=== PATIENT | female | born 1965 | race Caucasian/White ===

== ENCOUNTER 2016-06-15 15:41 | Inpatient (IN) | payer OTHER ==
[~2016-06-15] VITALS: Ht 168.9 cm; Wt 99.6 kg
[~2016-06-15 15:41] MED LIST: ATARAX,VISTARIL50 MG PO; LOSARTAN POTAS100 MG; LUNESTA3 MG PO; MOTRIN800 MG PO; OXYCODONE HCL30 MG
[2016-06-15 19:25] LABS: HEMATOCRIT 36.6 % (36.0-46.0); MCH 29.2 PG (29.0-34.0); MCHC 34.7 G/DL (30.0-36.0); MCV 84.1 FL (83-99); PLATELET COUNT 671 K/uL (156-360); RBC DIS.WIDTH-CV 12.6 % (11.8-14.6); RBC DIS.WIDTH-SD 37.9 % (39-53); RED BLOOD COUNT 4.35 M/uL (3.80-5.20); WHITE BLOOD COUNT 13.3 K/uL (4.1-10.2)
[2016-06-15 20:05] LABS: CHLORIDE 94 mEq/L (99-109); POTASSIUM 2.9 mEq/L (3.7-5.4); SODIUM 135 mEq/L (136-147)
[2016-06-15 20:08] LABS: GLUCOSE 125 mg/dL (70-99)
[2016-06-15 20:09] LABS: ANION GAP 17 MEQ/L (2-14)
[2016-06-15 20:10] LABS: TOTAL BILIRUBIN 0.5 mg/dL (0.0-1.0)
[2016-06-15 20:11] LABS: ALKALINE PHOSPHATASE 119 IU/L (3-129); GFR ESTIMATE (CALCULATED) 16 mL/min/
[2016-06-15 20:12] LABS: UREA NITROGEN (BUN) 29 mg/dL (9-23)
[2016-06-15 20:15] LABS: LIPASE 39 U/L (1.0-51.0)
[2016-06-15 20:31] LABS: HEMATOLOGY COMMENT 1 SMEAR COMPATIBLE; USER ID WCD
[2016-06-15 20:32] LABS: EOSINOPHIL (%) 0.2 % (0-5); IMMATURE GRANULOCYTE (%) 2.4 % (0.0-0.7); IMMATURE GRANULOCYTE COUNT 3.2 K/uL; LYMPHOCYTE COUNT 2.3 K/uL (1.0-2.8); MONOCYTE (%) 5.3 % (3-12); MONOCYTE COUNT 0.7 K/uL (0-0.8); NEUTROPHIL (%) 74.5 % (45-76); NEUTROPHIL COUNT 9.9 K/uL (1.8-6.4)
[2016-06-15 22:26] LABS: ADD MIUA? YES; BILIRUBIN NEGATIVE; BLOOD SMALL; COLOR AMBER ((YELLOW)); GLUCOSE (STRIP) NEGATIVE; KETONES 5; LEUKOCYTES MODERATE; NITRITE NEGATIVE; PROTEIN (STRIP) 100; SPECIFIC GRAVITY 1.019 (1.000-1.030); UROBILINOGEN 0.2 MG/DL (0.2-1.0)
[2016-06-15 22:47] LABS: EPITHELIAL CELLS RARE /HPF; MUCUS NONE SEEN /LPF; RED BLOOD CELLS 0-5 /HPF (0-5); WHITE BLOOD CELLS 30-40 /HPF (0-5)
[2016-06-15 22:48] LABS: BACTERIA 3+ /HPF; CASTS NONE SEEN /LPF; CRYSTALS NONE SEEN; UCUL ADDED? YES
[2016-06-15] MEDS ORDERED: METOPROLOL SUC100 MG PO (23:17)
[2016-06-15] MEDS ORDERED: BRINTELLIX10 MG PO (23:18)
[2016-06-15] MEDS ORDERED: XANAX1 MG PO (23:18)
[2016-06-16] VITALS (8 sets, daily range): BP systolic 104–141; BP diastolic 57–78
[2016-06-16 09:16] LABS: HEMATOCRIT 30.1 % (36.0-46.0); MCH 29.5 PG (29.0-34.0); MCHC 33.9 G/DL (30.0-36.0); MEAN PLAT.VOLUME 9.9 uM^3 (9.5-12.4); PLATELET COUNT 527 K/uL (156-360); RBC DIS.WIDTH-CV 13.4 % (11.8-14.6); RBC DIS.WIDTH-SD 42.6 % (39-53)
[2016-06-16 09:17] LABS: RED BLOOD COUNT 3.46 M/uL (3.80-5.20); WHITE BLOOD COUNT 8.7 K/uL (4.1-10.2)
[2016-06-16 09:18] LABS: ANION GAP 13 MEQ/L (2-14); CHLORIDE 99 MEQ/L (99-109); SAMPLE HEMOLYSIS CHECK 0; SAMPLE ICTERIC CHECK 0; SAMPLE LIPEMIA CHECK 0; SODIUM 137 MEQ/L (136-147)
[2016-06-16 09:22] LABS: POTASSIUM 3.5 MEQ/L (3.7-5.4)
[2016-06-16 09:24] LABS: GFR ESTIMATE (CALCULATED) 15 mL/min/; UREA NITROGEN (BUN) 30 mg/dL (9-23)
[2016-06-16 09:25] LABS: GLUCOSE 91 mg/dL (70-99)
[2016-06-17 04:20] VITALS: BP 122/80
[2016-06-17 06:26] LABS: EOSINOPHIL (%) 1.2 % (0-5); EOSINOPHIL COUNT 0.1 K/uL (0-0.3); HEMATOCRIT 30.9 % (36.0-46.0); IMMATURE GRANULOCYTE (%) 1.7 % (0.0-0.7); IMMATURE GRANULOCYTE COUNT 0.1 K/uL; LYMPHOCYTE COUNT 2.2 K/uL (1.0-2.8); MCH 29.1 PG (29.0-34.0); MCV 88.3 FL (83-99); MONOCYTE (%) 9.6 % (3-12); MONOCYTE COUNT 0.6 K/uL (0-0.8); NEUTROPHIL (%) 50.9 % (45-76); NEUTROPHIL COUNT 3.1 K/uL (1.8-6.4); PLATELET COUNT 466 K/uL (156-360); RBC DIS.WIDTH-CV 13.6 % (11.8-14.6); RBC DIS.WIDTH-SD 43.9 % (39-53)
[2016-06-17 06:51] LABS: ANION GAP 10 MEQ/L (2-14); CHLORIDE 105 MEQ/L (99-109); GFR ESTIMATE (CALCULATED) 24 mL/min/; GLUCOSE 92 mg/dL (70-99); MAGNESIUM 1.4 mg/dl (1.3-2.7); POTASSIUM 3.1 MEQ/L (3.7-5.4); SAMPLE HEMOLYSIS CHECK 0; SAMPLE ICTERIC CHECK 0; SAMPLE LIPEMIA CHECK 0; SODIUM 139 MEQ/L (136-147); UREA NITROGEN (BUN) 26 mg/dL (9-23); URIC ACID 8.1 mg/dL (3.1-9.2)
[2016-06-17 08:27] VITALS: BP 112/68
[2016-06-17 12:24] VITALS: BP 112/56
[2016-06-17 16:29] VITALS: BP 162/92
[2016-06-17 20:02] VITALS: BP 127/82
[2016-06-18] VITALS (7 sets, daily range): BP systolic 110–182; BP diastolic 58–90
[2016-06-18 09:10] LABS: ANION GAP 8 MEQ/L (2-14); CHLORIDE 107 MEQ/L (99-109); GFR ESTIMATE (CALCULATED) 28 mL/min/; GLUCOSE 93 mg/dL (70-99); SAMPLE HEMOLYSIS CHECK 0; SAMPLE ICTERIC CHECK 0; SAMPLE LIPEMIA CHECK 0; SODIUM 142 MEQ/L (136-147); UREA NITROGEN (BUN) 21 mg/dL (9-23)
[2016-06-18 09:13] LABS: MAGNESIUM 1.7 mg/dl (1.3-2.7); POTASSIUM 4.4 MEQ/L (3.7-5.4)
[2016-06-19 04:38] VITALS: BP 115/57
[2016-06-19 06:20] LABS: ANION GAP 8 MEQ/L (2-14); CHLORIDE 108 MEQ/L (99-109); GFR ESTIMATE (CALCULATED) 30 mL/min/; GLUCOSE 99 mg/dL (70-99); SAMPLE HEMOLYSIS CHECK 1; SAMPLE ICTERIC CHECK 0; SAMPLE LIPEMIA CHECK 0; SODIUM 142 MEQ/L (136-147); UREA NITROGEN (BUN) 17 mg/dL (9-23)
[2016-06-19 06:43] LABS: MAGNESIUM 1.5 mg/dl (1.3-2.7)
[2016-06-19 07:41] LABS: POTASSIUM 4.6 MEQ/L (3.7-5.4)
[2016-06-19 08:30] VITALS: BP 147/65
[2016-06-19 11:30] VITALS: BP 114/73
[2016-06-19 15:05] VITALS: BP 178/90
[2016-06-19 21:04] VITALS: BP 178/98
[2016-06-20 00:13] VITALS: BP 120/71
[2016-06-20 06:31] LABS: ANION GAP 10 MEQ/L (2-14); CHLORIDE 106 MEQ/L (99-109); GFR ESTIMATE (CALCULATED) 34 mL/min/; GLUCOSE 94 mg/dL (70-99); POTASSIUM 4.3 MEQ/L (3.7-5.4); SAMPLE HEMOLYSIS CHECK 0; SAMPLE ICTERIC CHECK 0; SAMPLE LIPEMIA CHECK 0; SODIUM 138 MEQ/L (136-147); UREA NITROGEN (BUN) 15 mg/dL (9-23)
[2016-06-20 08:30] VITALS: BP 110/61
[2016-06-20 14:08] LABS: MAGNESIUM 1.2 mg/dl (1.3-2.7)
[2016-06-20 16:30] VITALS: BP 134/78
[2016-06-20 23:51] VITALS: BP 113/72
[2016-06-21 05:08] LABS: POTASSIUM 4.7 mEq/L (3.7-5.4)
[2016-06-21 05:10] LABS: GLUCOSE 88 mg/dL (70-99)
[2016-06-21 05:12] LABS: ANION GAP 7 MEQ/L (2-14)
[2016-06-21 05:13] LABS: CHLORIDE 109 mEq/L (99-109); SODIUM 145 mEq/L (136-147)
[2016-06-21 05:14] LABS: GFR ESTIMATE (CALCULATED) 34 mL/min/
[2016-06-21 05:15] LABS: UREA NITROGEN (BUN) 14 mg/dL (9-23)
[2016-06-21 07:41] VITALS: BP 170/89
[2016-06-21] MEDS ORDERED: AMLODIPINE BESYL5 MG PO (10:50)
[2016-06-21] MEDS ORDERED: CIPRO500 MG PO (10:50)
[2016-06-21] MEDS ORDERED: METOPROLOL SUC100 MG PO (11:50)
[2016-06-22] MEDS ORDERED: ZOFRAN4 MG PO (19:08)
== END 2016-06-21 12:23 | disposition home or self-care (01) | DRG 872 ==
LOC: EME 15:41 → EDOF 06-16 01:36 → 5WEST 06-16 02:24 → 4SOUTH 06-16 08:53 → 3EAST 06-16 08:53 → 5WEST 06-16 09:18 → 4SOUTH 06-16 13:01 → 3EAST 06-18 17:40
PROVIDERS: Emergency Medicine; Hospitalist; Internal Medicine; Internal Medicine Nephrology; Nurse Practitioner Adult Health; Physician Assistant
DX: A41.9 Sepsis, unspecified organism (principal); N12 Tubulo-interstitial nephritis, not specified as acute or chronic; B96.20 Unspecified Escherichia coli [E. coli] as the cause of diseases classified elsewhere; N17.9 Acute kidney failure, unspecified; T39.395A Adverse effect of other nonsteroidal anti-inflammatory drugs [NSAID], initial encounter; K52.9 Noninfective gastroenteritis and colitis, unspecified; E87.6 Hypokalemia; E86.0 Dehydration; E83.42 Hypomagnesemia; I12.9 Hypertensive chronic kidney disease with stage 1 through stage 4 chronic kidney disease, or unspecified chronic kidney disease; N18.2 Chronic kidney disease, stage 2 (mild); E78.5 Hyperlipidemia, unspecified; F41.9 Anxiety disorder, unspecified; F32.9 Major depressive disorder, single episode, unspecified; G89.29 Other chronic pain; E66.9 Obesity, unspecified; Z68.34 Body mass index [BMI] 34.0-34.9, adult; B19.20 Unspecified viral hepatitis C without hepatic coma; F17.200 Nicotine dependence, unspecified, uncomplicated; Z63.6 Dependent relative needing care at home
CPT/HCPCS: 74176; 76705; 76770; 80048; 80053; 81003; 82040; 83690; 83735; 84100; 84550; 84999; 85025; 85027; 87077; 87086; 87186; 89190; 94640; 94640 76; 99202; 99281; 99285; J0696; J1170; J1644; J1885; J2405; J3010; J3475; J3480; J7030; J7050; J7120; Q0177; S0028

== ENCOUNTER 2016-06-22 13:43 | Emergency (ER) | payer OTHER ==
[~2016-06-22] VITALS: Ht 167.6 cm; Wt 104.0 kg
[~2016-06-22 13:43] MED LIST changes: +AMLODIPINE BESYL5 MG PO; +BRINTELLIX10 MG PO; +CIPRO500 MG PO; +METOPROLOL SUC100 MG PO; +XANAX1 MG PO
[2016-06-22 15:37] LABS: HEMATOCRIT 37.2 % (36.0-46.0); MCH 29.1 PG (29.0-34.0); MCHC 32.5 G/DL (30.0-36.0); MCV 89.4 FL (83-99); MEAN PLAT.VOLUME 9.2 uM^3 (9.5-12.4); PLATELET COUNT 354 K/uL (156-360); RBC DIS.WIDTH-SD 41.5 % (39-53); RED BLOOD COUNT 4.16 M/uL (3.80-5.20)
[2016-06-22 15:47] LABS: CHLORIDE 107 mEq/L (99-109); POTASSIUM 4.2 mEq/L (3.7-5.4); SODIUM 144 mEq/L (136-147)
[2016-06-22 15:49] LABS: GLUCOSE 107 mg/dL (70-99)
[2016-06-22 15:51] LABS: ANION GAP 9 MEQ/L (2-14); TOTAL BILIRUBIN 0.4 mg/dL (0.0-1.0)
[2016-06-22 15:53] LABS: GFR ESTIMATE (CALCULATED) 39 mL/min/
[2016-06-22 15:54] LABS: UREA NITROGEN (BUN) 12 mg/dL (9-23)
[2016-06-22 15:56] LABS: LIPASE 12 U/L (1.0-51.0)
[2016-06-22 16:01] LABS: ALKALINE PHOSPHATASE 79 IU/L (3-129)
[2016-06-22 18:21] LABS: ADD MIUA? NO; BILIRUBIN NEGATIVE; BLOOD NEGATIVE; COLOR YELLOW ((YELLOW)); GLUCOSE (STRIP) NEGATIVE; KETONES NEGATIVE; LEUKOCYTES NEGATIVE; NITRITE NEGATIVE; PROTEIN (STRIP) NEGATIVE; SPECIFIC GRAVITY 1.012 (1.000-1.030); UCUL ADDED? NO; UROBILINOGEN 0.2 MG/DL (0.2-1.0)
[2016-06-22 18:31] LABS: AMPHETAMINE NEGATIVE (500 ng/mL); BARBITURATES NEGATIVE (200 ng/mL); BENZODIAZEPINES PRESUMPTIVE POSITIVE (150 ng/mL); COCAINE NEGATIVE (150 ng/mL); METHADONE NEGATIVE (200 ng/mL); METHAMPHETAMINE NEGATIVE (500 ng/mL); OPIATES (MORPHINE) PRESUMPTIVE POSITIVE (100 ng/mL); OXYCODONE PRESUMPTIVE POSITIVE (100 ng/mL); PHENCYCLIDINE NEGATIVE (25 ng/mL); PROPOXYPHENE NEGATIVE (300 ng/mL); THC CANNABINOIDS PRESUMPTIVE POSITIVE (50 ng/mL); TRICYCLIC ANTIDEPRESSANTS NEGATIVE (300 ng/mL)
[2016-06-22 18:32] LABS: ADD MEDTOX COMMENT Y; INTERNAL CONTROLS VALID? YES
[2016-06-22 19:02] LABS: BENZODIAZEPINES, URINE SCREEN POSITIVE (200 ng/mL)
[2016-06-22] MEDS ORDERED: ZOFRAN4 MG PO (19:08)
[2016-06-22 19:42] VITALS: BP 167/98
== END 2016-06-22 19:50 | disposition home or self-care (01) ==
LOC: EME 13:43
PROVIDERS: Physician Assistant
DX: R11.2 Nausea with vomiting, unspecified (principal); R10.9 Unspecified abdominal pain; N28.9 Disorder of kidney and ureter, unspecified
CPT/HCPCS: 76705; 80053; 81003; 83690; 84702; 84999; 85027; 99281; 99285; J1630; J1885; J2405; J7030

== ENCOUNTER 2017-03-21 14:05 | Inpatient (IN) | payer OTHER ==
[~2017-03-21] VITALS: Ht 167.6 cm; Wt 95.4 kg
[~2017-03-21 14:05] MED LIST changes: +ZOFRAN4 MG PO
[2017-03-21 18:28] LABS: HEMATOCRIT 42.9 % (36.0-46.0); MCH 29.9 PG (29.0-34.0); MCHC 33.3 G/DL (30.0-36.0); MCV 89.7 FL (83-99); MEAN PLAT.VOLUME 10.7 uM^3 (9.5-12.4); PLATELET COUNT 230 K/uL (156-360); RBC DIS.WIDTH-CV 12.5 % (11.8-14.6); RBC DIS.WIDTH-SD 41.7 % (39-53); RED BLOOD COUNT 4.78 M/uL (3.80-5.20); WHITE BLOOD COUNT 7.9 K/uL (4.1-10.2)
[2017-03-21 18:36] LABS: CHLORIDE 107 mEq/L (99-109); POTASSIUM 4.2 mEq/L (3.7-5.4); SODIUM 142 mEq/L (136-147)
[2017-03-21 18:38] LABS: GLUCOSE 87 mg/dL (70-99)
[2017-03-21 18:39] LABS: ANION GAP 13 MEQ/L (2-14)
[2017-03-21 18:39] LABS: ADD MEDTOX COMMENT Y; AMPHETAMINE NEGATIVE (500 ng/mL); BARBITURATES NEGATIVE (200 ng/mL); BENZODIAZEPINES PRESUMPTIVE POSITIVE (150 ng/mL); COCAINE PRESUMPTIVE POSITIVE (150 ng/mL); INTERNAL CONTROLS VALID? YES; METHADONE NEGATIVE (200 ng/mL); METHAMPHETAMINE NEGATIVE (500 ng/mL); OPIATES (MORPHINE) NEGATIVE (100 ng/mL); OXYCODONE NEGATIVE (100 ng/mL); PHENCYCLIDINE NEGATIVE (25 ng/mL); PROPOXYPHENE NEGATIVE (300 ng/mL); THC CANNABINOIDS PRESUMPTIVE POSITIVE (50 ng/mL); TRICYCLIC ANTIDEPRESSANTS NEGATIVE (300 ng/mL)
[2017-03-21 18:40] LABS: TOTAL BILIRUBIN 0.2 mg/dL (0.0-1.0)
[2017-03-21 18:41] LABS: SERUM ETHYL ALCOHOL < 10 mg/dL
[2017-03-21 18:42] LABS: ALKALINE PHOSPHATASE 78 IU/L (3-129); GFR ESTIMATE (CALCULATED) 46 mL/min/
[2017-03-21 18:43] LABS: UREA NITROGEN (BUN) 16 mg/dL (9-23)
[2017-03-21 19:03] LABS: BENZODIAZEPINES, URINE SCREEN POSITIVE (200 ng/mL)
[2017-03-21 20:47] VITALS: BP 139/94
[2017-03-21 20:48] VITALS: BP 139/94
[2017-03-21] MEDS ORDERED: VENTOLIN HFA18 GM AEROSOL (21:31)
[2017-03-22 07:36] VITALS: BP 151/71
[2017-03-22 15:26] VITALS: BP 167/79
[2017-03-22 18:31] VITALS: BP 145/80
[2017-03-23 07:51] VITALS: BP 133/85
[2017-03-23 15:30] VITALS: BP 147/69
[2017-03-24 07:22] VITALS: BP 170/106
[2017-03-24 14:59] VITALS: BP 167/79
[2017-03-24 20:24] VITALS: BP 151/82
[2017-03-25 07:45] VITALS: BP 155/73
[2017-03-25 15:37] VITALS: BP 164/102
[2017-03-26 07:24] VITALS: BP 140/77
[2017-03-26] MEDS ORDERED: BRINTELLIX20 MG PO (10:21)
== END 2017-03-26 11:45 | disposition home or self-care (01) | DRG 885 ==
LOC: EME 14:05 → 1WEST 18:59 → EDOF 18:59 → ENRESERV 20:30 → 1WEST 20:42
PROVIDERS: Emergency Medicine
DX: F33.1 Major depressive disorder, recurrent, moderate (principal); R45.851 Suicidal ideations; F11.10 Opioid abuse, uncomplicated; F12.10 Cannabis abuse, uncomplicated; F14.10 Cocaine abuse, uncomplicated; F17.210 Nicotine dependence, cigarettes, uncomplicated; F41.9 Anxiety disorder, unspecified; F60.9 Personality disorder, unspecified; G47.00 Insomnia, unspecified; F43.23 Adjustment disorder with mixed anxiety and depressed mood; I10 Essential (primary) hypertension; Z87.820 Personal history of traumatic brain injury; Z91.5 Personal history of self-harm; Z60.2 Problems related to living alone; Z56.0 Unemployment, unspecified; Z88.6 Allergy status to analgesic agent
CPT/HCPCS: 80053; 84999; 85027; 90839; 94640; 94640 76; 97150 GO; 97166 GO; 99202; 99281; 99284; G0480; Q0177

== ENCOUNTER 2017-05-19 16:18 | Inpatient (IN) | payer OTHER ==
[~2017-05-19] VITALS: Ht 167.6 cm; Wt 91.1 kg
[~2017-05-19 16:18] MED LIST changes: +BRINTELLIX20 MG PO; +VENTOLIN HFA18 GM AEROSOL
[2017-05-19 20:52] LABS: HEMATOCRIT 40.7 % (36.0-46.0); HEMOGLOBIN 13.7 G/DL (11.9-15.5); MCH 30.2 PG (29.0-34.0); MCHC 33.7 G/DL (30.0-36.0); MCV 89.6 FL (83-99); PLATELET COUNT 269 K/uL (156-360); RBC DIS.WIDTH-CV 12.7 % (11.8-14.6); RBC DIS.WIDTH-SD 41.7 % (39-53); RED BLOOD COUNT 4.54 M/uL (3.80-5.20); WHITE BLOOD COUNT 11.4 K/uL (4.1-10.2)
[2017-05-19 21:03] LABS: ALBUMIN 4.4 g/dL (3.2-4.8)
[2017-05-19 21:04] LABS: CHLORIDE 104 mEq/L (99-109); POTASSIUM 4.6 mEq/L (3.7-5.4); SODIUM 140 mEq/L (136-147)
[2017-05-19 21:06] LABS: GLUCOSE 105 mg/dL (70-99)
[2017-05-19 21:08] LABS: TOTAL BILIRUBIN 0.4 mg/dL (0.0-1.0)
[2017-05-19 21:09] LABS: ALKALINE PHOSPHATASE 77 IU/L (3-129); SERUM ETHYL ALCOHOL < 10 mg/dL
[2017-05-19 21:10] LABS: CREATININE 1.6 mg/dL (0.6-1.3); GFR ESTIMATE (CALCULATED) 36 mL/min/
[2017-05-19 21:11] LABS: AST (GOT) 32 IU/L (2-34); UREA NITROGEN (BUN) 17 mg/dL (9-23)
[2017-05-19 21:13] LABS: ALT (GPT) 22 IU/L (3-49)
[2017-05-19 22:24] LABS: THYROTROPIN (TSH) 1.4 MIU/L (0.4-5.5)
[2017-05-19 22:25] LABS: AMPHETAMINE NEGATIVE (500 ng/mL); BARBITURATES NEGATIVE (200 ng/mL); BENZODIAZEPINES NEGATIVE (150 ng/mL); BUPRENORPHINE PRESUMPTIVE POSITIVE (10 ng/mL); COCAINE PRESUMPTIVE POSITIVE (150 ng/mL); METHADONE NEGATIVE (200 ng/mL); METHAMPHETAMINE PRESUMPTIVE POSITIVE (500 ng/mL); OPIATES (MORPHINE) NEGATIVE (100 ng/mL); OXYCODONE NEGATIVE (100 ng/mL); PHENCYCLIDINE NEGATIVE (25 ng/mL); PROPOXYPHENE NEGATIVE (300 ng/mL); THC CANNABINOIDS NEGATIVE (50 ng/mL); TRICYCLIC ANTIDEPRESSANTS NEGATIVE (300 ng/mL)
[2017-05-20 03:10] VITALS: BP 137/89
[2017-05-20 03:18] VITALS: BP 137/89
[2017-05-20 08:16] VITALS: BP 170/93
[2017-05-20 15:44] VITALS: BP 162/94
[2017-05-21 09:16] VITALS: BP 161/73
[2017-05-21 15:10] VITALS: BP 141/89
[2017-05-22 08:03] VITALS: BP 161/79
[2017-05-22 10:26] VITALS: BP 132/70
[2017-05-22 14:56] VITALS: BP 112/71
[2017-05-23 07:53] VITALS: BP 138/82
[2017-05-23 16:01] VITALS: BP 116/76
[2017-05-24 07:36] VITALS: BP 146/73
[2017-05-24] MEDS ORDERED: ARIPIPRAZOLE5 MG PO (09:00)
[2017-05-24] MEDS ORDERED: ESCITALOPRAM OX10 MG PO (09:00)
[2017-05-24] MEDS ORDERED: METOPROLOL SUCC50 MG PO (09:00)
[2017-05-24] MEDS ORDERED: BUPROPION HCL100 M1 PO (09:00)
== END 2017-05-24 10:04 | disposition home or self-care (01) | DRG 885 ==
LOC: EME 16:18 → EDOF 05-20 00:51 → 1WEST 05-20 00:51 → ENRESERV 05-20 02:41 → 1WEST 05-20 02:42
PROVIDERS: Emergency Medicine
DX: F33.2 Major depressive disorder, recurrent severe without psychotic features (principal); R45.851 Suicidal ideations; F22 Delusional disorders; E86.0 Dehydration; F14.10 Cocaine abuse, uncomplicated; F17.200 Nicotine dependence, unspecified, uncomplicated; I10 Essential (primary) hypertension; Z63.4 Disappearance and death of family member
CPT/HCPCS: 80053; 84443; 84999; 85027; 90839; 97150 GO; 97166 GO; 99281; 99285; G0480

== ENCOUNTER 2017-08-07 17:27 | Inpatient (IN) | payer OTHER ==
[~2017-08-07] VITALS: Ht 170.2 cm; Wt 91.5 kg
[~2017-08-07 17:27] MED LIST changes: +ARIPIPRAZOLE5 MG PO; +BUPROPION HCL100 M1 PO; +ESCITALOPRAM OX10 MG PO; +METOPROLOL SUCC50 MG PO
[2017-08-07 18:39] LABS: BASOPHIL (%) 0.6 % (0-1); BASOPHIL COUNT 0.1 K/uL (0-0.1); EOSINOPHIL (%) 2.4 % (0-5); EOSINOPHIL COUNT 0.3 K/uL (0-0.3); HEMATOCRIT 41.1 % (36.0-46.0); IMMATURE GRANULOCYTE (%) 0.3 % (0.0-0.7); LYMPHOCYTE (%) 36.7 % (15-42); LYMPHOCYTE COUNT 3.8 K/uL (1.0-2.8); MCH 29.4 PG (29.0-34.0); MCHC 34.1 G/DL (30.0-36.0); MCV 86.3 FL (83-99); MONOCYTE COUNT 0.7 K/uL (0-0.8); NEUTROPHIL COUNT 5.5 K/uL (1.8-6.4); PLATELET COUNT 238 K/uL (156-360); RBC DIS.WIDTH-CV 12.3 % (11.8-14.6); RBC DIS.WIDTH-SD 39.1 % (39-53); RED BLOOD COUNT 4.76 M/uL (3.80-5.20); WHITE BLOOD COUNT 10.4 K/uL (4.1-10.2)
[2017-08-07 19:01] LABS: TROP-I INTERPRETATION NEGATIVE; TROPONIN-I < 0.01 ng/mL (0.0-0.30)
[2017-08-07 19:02] LABS: CHLORIDE 108 mEq/L (99-109); POTASSIUM 4.5 mEq/L (3.7-5.4); SODIUM 139 mEq/L (136-147)
[2017-08-07 19:04] LABS: GLUCOSE 89 mg/dL (70-99)
[2017-08-07 19:07] LABS: CREATININE 1.3 mg/dL (0.6-1.3); GFR ESTIMATE (CALCULATED) 46 mL/min/
[2017-08-07 19:08] LABS: UREA NITROGEN (BUN) 29 mg/dL (9-23)
[2017-08-07] MEDS ORDERED: METOPROLOL SUC100 MG PO (20:45)
[2017-08-07] MEDS ORDERED: LUNESTA3 MG PO (20:45)
[2017-08-07] MEDS ORDERED: HYDROXYZINE HCL10 MG PO (20:46)
[2017-08-07] MEDS ORDERED: LEXAPRO10 MG PO (20:48)
[2017-08-07] MEDS ORDERED: ABILIFY5 MG PO (20:50)
[2017-08-07] MEDS ORDERED: BLUE PO (20:51)
[2017-08-07 21:55] VITALS: BP 135/74
[2017-08-08 07:11] LABS: HDL CHOLESTEROL 55 MG/DL (Desirable>=50); LDL CHOLESTEROL 167 mg/dL (Desirable<100); NON-HDL CHOLESTEROL 194 mg/dL (Desirable<160); TOTAL CHOLESTEROL 249 mg/dL (Desirable<200); TRIGLYCERIDES 137 MG/DL (Normal: <150)
[2017-08-08 07:35] VITALS: BP 123/70
[2017-08-08 10:04] LABS: HEMOGLOBIN A1c (GLYCOHEMOGLOB) 5.5 % (Below 5.7)
[2017-08-08] MEDS ORDERED: PRILOSEC20 MG PO (11:31)
[2017-08-08] MEDS ORDERED: BRINTELLIX10 MG PO (11:32)
[2017-08-08 11:57] VITALS: BP 114/58
[2017-08-08 16:40] VITALS: BP 120/5
[2017-08-08 20:02] VITALS: BP 113/73
[2017-08-09] VITALS: BP 134/84
[2017-08-09 04:00] VITALS: BP 124/64
[2017-08-09 07:13] VITALS: BP 109/62
[2017-08-09 12:07] VITALS: BP 111/68
[2017-08-09 17:01] VITALS: BP 133/83
[2017-08-09 19:52] VITALS: BP 123/74
[2017-08-10 00:08] VITALS: BP 122/65
[2017-08-10 03:51] VITALS: BP 128/72
[2017-08-10 07:27] VITALS: BP 128/75
[2017-08-10 11:54] VITALS: BP 108/67
[2017-08-10 16:16] VITALS: BP 123/82
[2017-08-10] MEDS ORDERED: NICOTINE PATCH1 EAC1 TD (16:18)
[2017-08-10] MEDS ORDERED: CLOPIDOGREL75 MG PO (16:18)
[2017-08-10] MEDS ORDERED: ASPIR-LOW81 MG PO (16:18)
[2017-08-10] MEDS ORDERED: LOPRESSOR25 MG PO (16:18)
[2017-08-10] MEDS ORDERED: ATORVASTATIN CA80 MG PO (16:18)
== END 2017-08-10 18:00 | disposition home or self-care (01) | DRG 65 ==
LOC: EME 17:27 → EDOF 20:50 → 5SOUTH 20:50 → ENRESERV 20:53 → 5SOUTH 21:42
PROVIDERS: Internal Medicine; Physician Assistant
DX: I63.231 Cerebral infarction due to unspecified occlusion or stenosis of right carotid arteries (principal); R29.702 NIHSS score 2; I10 Essential (primary) hypertension; N28.9 Disorder of kidney and ureter, unspecified; F31.9 Bipolar disorder, unspecified; I34.0 Nonrheumatic mitral (valve) insufficiency; F17.210 Nicotine dependence, cigarettes, uncomplicated; G81.94 Hemiplegia, unspecified affecting left nondominant side; J01.90 Acute sinusitis, unspecified; J32.9 Chronic sinusitis, unspecified; F12.90 Cannabis use, unspecified, uncomplicated; R29.810 Facial weakness; J44.9 Chronic obstructive pulmonary disease, unspecified; F41.9 Anxiety disorder, unspecified; F33.9 Major depressive disorder, recurrent, unspecified; F60.9 Personality disorder, unspecified; Z90.81 Acquired absence of spleen; Z82.49 Family history of ischemic heart disease and other diseases of the circulatory system; Z82.3 Family history of stroke; Z88.6 Allergy status to analgesic agent
CPT/HCPCS: 70450; 70498; 70551; 71046; 80048; 80061; 83036; 84484; 85025; 92523 GN; 93005; 93306; 93880; 99202; 99281; 99285; J1650

== ENCOUNTER 2017-09-05 12:27 | Observation (INO) | payer OTHER ==
[~2017-09-05] VITALS: Ht 167.6 cm; Wt 100.5 kg
[2017-09-05] VITALS (19 sets, daily range): BP systolic 92–143; BP diastolic 42–77
[~2017-09-05 12:27] MED LIST changes: +ABILIFY5 MG PO; +ASPIR-LOW81 MG PO; +ATORVASTATIN CA80 MG PO; +BLUE PO; +CLOPIDOGREL75 MG PO; +HYDROXYZINE HCL10 MG PO; +LEXAPRO10 MG PO; +LOPRESSOR25 MG PO; +NICOTINE PATCH1 EAC1 TD; +PRILOSEC20 MG PO; +TOPROL XL100 MG PO
[2017-09-05] MEDS ORDERED: HYDROCODON-ACE1 EAC7 PO (22:34)
[2017-09-06] VITALS (10 sets, daily range): BP systolic 115–137; BP diastolic 51–85
[2017-09-06] MEDS ORDERED: ASPIR-LOW81 MG PO (14:06)
== END 2017-09-06 17:25 | disposition home or self-care (01) ==
LOC: SDC 12:27 → ENRESERV 15:55 → 2SOUTH 16:57 → 4WEST 16:57 → ENRESERV 18:03 → 4WEST 19:27
DX: I63.231 Cerebral infarction due to unspecified occlusion or stenosis of right carotid arteries (principal); I10 Essential (primary) hypertension; Z79.82 Long term (current) use of aspirin; Z79.02 Long term (current) use of antithrombotics/antiplatelets; F17.200 Nicotine dependence, unspecified, uncomplicated; Z82.3 Family history of stroke; Z82.49 Family history of ischemic heart disease and other diseases of the circulatory system; Z90.81 Acquired absence of spleen
CPT/HCPCS: 87641; 93005; C1768; G0378; J0690; J1100; J1170; J1644; J1650; J2405; J2720; J3010; J7120; J7643